=== PATIENT | female | born 1995 | race Caucasian/White ===

== ENCOUNTER 2018-06-19 17:58 | Emergency (ER) | payer BC, OTHER | END 2018-06-19 19:23 | disposition home or self-care (01) | LOC: SCSER 17:58 | DX: O20.9 Hemorrhage in early pregnancy, unspecified (principal); O99.331 Smoking (tobacco) complicating pregnancy, first trimester; F17.200 Nicotine dependence, unspecified, uncomplicated; Z3A.01 Less than 8 weeks gestation of pregnancy | CPT/HCPCS: 99283 ==

== ENCOUNTER 2019-01-26 05:02 | Inpatient (IN) | payer BC ==
[2019-01-26 05:35] VITALS: BMI 25.4
--- NOTE | 2019-01-26 05:48 | PDOC.LDHP ---
Labor and Delivery H&P HPI: Patient of Dr Hopson Location: L&D time: 544 HPI: 24 yo at 38 weeks 2 days with CTX sice 0200. No VB, no LOF. Good FM. Review of systems: completed ROS performed and negative unless specified in HPI Current gestational age (weeks): 38 (1 day) Due date: 02/08/19 Grav: 2 Para: 1 OB History Details: x1 Current complications: none Abnormal US findings: No Current medications: pre-rima vitamins Previous surgical history: none Allergies/Adverse Reactions: Allergies Allergy/AdvReac Type Severity Reaction Status Date / Time No Known Allergies Allergy Verified 01/26/19 05:31 - Physical Exam Vital signs reviewed and normal: yes General: NAD Heart: RRR Lungs: CTAB Abdomen: gravid Extremeties: no edema FHT: category [address] [place] contractions every: evrey 3-5 min - Vaginal Exam cm dilated: 4 Effacement: 75% Station: -2 - Assessment Latent labor at early term; GBS neg - Plan Plan: observation in L&D (Patient was 3 cm last check in office, with slight change now. We will OBS for 2 hours and recheck to see if progress made. Admit if cervical change or needed pain control.)
[2019-01-26] MEDS ORDERED: Fentanyl 4 mcg/Bup 0.1% Cadd 100 ML ONE (06:58)
--- NOTE | 2019-01-26 07:02 | PDOC.EVN ---
Event Note - Event Note Event Note: Cevical recheck by RN: 7cm...direct admission
[2019-01-26] MEDS ORDERED: Butorphanol Tartrate 1 MG/ML VIAL SLOW IVP PRN (07:06)
[2019-01-26] MEDS ORDERED: Promethazine HCl 25 MG/ML VIAL IM/IV PRN (07:06)
[2019-01-26] MEDS ORDERED: Butorphanol Tartrate 1 MG/ML VIAL ONE (07:07)
[2019-01-26] MEDS ORDERED: HYDROcodone/Acetaminophen 5/325 mg Tablet PO PRN ×2 (07:13)
[2019-01-26] MEDS ORDERED: Lidocaine 1% (PF) 30 ML VIAL SC PRN (07:13)
[2019-01-26] MEDS ORDERED: Ibuprofen 800 MG TAB PO PRN (07:13)
[2019-01-26] MEDS ORDERED: NS / Oxytocin 40 units/1000ml 1,000 ML IV PRN (07:13)
[2019-01-26 07:17] LABS: Hemoglobin 12.2 g/dL (12.0-16.0); Mean Corpuscular HGB CONC 33.6 g/dL (32.0-36.0); Mean Corpuscular Hemoglobin 28.8 pg (27.0-31.0); Mean Corpuscular Volume 85.8 fL (78.0-98.0); Mean Platelet Volume 6.9 fL (7.4-10.4); Platelet Count 298 thou/uL (130-400); Red Blood Cell (RBC) Count 4.22 mill/uL (4.20-5.40); White Blood Cell (WBC) Count 8.9 thou/uL (4.8-10.8)
[2019-01-26] MEDS ORDERED: Fentanyl 100 MCG/2 ML VIAL ONE (07:35)
[2019-01-26] MEDS ORDERED: Lidocaine 1.5%/Epinephrine 1:200,000 5 ML AMPUL IJ ONE (07:35)
[2019-01-26] MEDS ORDERED: NS / Oxytocin 40 units/1000ml 1,000 ML ONE ×2 (08:33→13:34)
[2019-01-26] MEDS ORDERED: Lidocaine 1% (PF) 30 ML VIAL ONE (08:33)
[2019-01-26 08:34] LABS: Syphilis Antibody Nonreactive (Nonreactive); Syphilis Antibody Index 0.04 S/CO (<1.00 Non-Reactive)
[2019-01-26 08:35] LABS: HBSAg Index 0.36 S/CO (0-0.99); Hep B Surf Ag Non-Reactive S/CO (NonReactive)
[2019-01-26] MEDS ORDERED: Bupivacaine/Epinephrine 0.25% 30 ML VIAL ONE (09:00)
--- NOTE | 2019-01-26 09:10 | PDOC.OPDEL ---
OB Operative/Delivery Note Delivery Dr/Surgeon: Costa Assist: Minh Pre-Delivery Diagnosis: active labor Procedure/Post Delivery Dx: spontaneous vaginal delivery Anesthesia: epidural - Additional Findings/Plan Placenta delivered: spontaneous Repaired Obstetrical Laceration: none Estimated blood loss: QBL= 48 cc Compilations/Other Findings: of viable female . Apgars 9/9 Post delivery plan: routine recovery
[2019-01-26] MEDS ORDERED: Bisacodyl 10 MG SUPP PR PRN (10:57)
[2019-01-26] MEDS ORDERED: Milk Of Magnesia 30 ML UDCUP PO PRN (10:57)
[2019-01-26] MEDS ORDERED: Methylergonovine 0.2 MG TAB PO PRN (10:57)
[2019-01-26] MEDS ORDERED: Lanolin Ointment 7 GM TUBE TOP PRN (10:57)
[2019-01-26] MEDS ORDERED: Adacel (T-DAP) 0.5 ML SYRINGE IM ONE (10:57)
[2019-01-26] MEDS ORDERED: Preparation H Ointment 28 GM TUBE PR PRN (10:57)
[2019-01-26] MEDS ORDERED: diphenhydrAMINE 25 MG CAP PO PRN (10:57)
[2019-01-26] MEDS ORDERED: Misoprostol 200 MCG TAB VAG PRN (10:57)
[2019-01-26] MEDS ORDERED: Ondansetron PF 4 MG/2 ML Vial IVP PRN (10:57)
[2019-01-26] MEDS ORDERED: Zolpidem Tartrate 5 MG TAB PO PRN (10:57)
[2019-01-26] MEDS ORDERED: Benzocaine-Menthol 82.5 ML CAN TOP PRN (10:57)
[2019-01-26] MEDS ORDERED: Methylergonovine 0.2 MG/ML VIAL IM PRN (10:57)
[2019-01-26] MEDS: Ferrous Sulfate 325 MG TAB PO SCH (18:01)
[2019-01-26] MEDS: Ibuprofen 800 MG TAB PO SCH (22:01)
[2019-01-26] MEDS: Docusate Calcium (SURFAK) 240 MG CAP PO SCH (22:01)
--- NOTE | 2019-01-27 00:28 | PDOC.PP ---
Post Progress Note Post Day #: PPD#1 Subjective: Resting, no complaints. PO intake tolerated: yes Ambulation: yes Vital Signs (12 hours) Temp Pulse Resp BP Pulse Ox 01/26/19 20:05 98.0 F 76 18 109/67 98 01/26/19 13:30 63 18 147/74 H Weight Weight 61.235 kg - Physical Examination General: NAD Respiratory: non-labored breathing Neurological: no gross focal deficits Psychiatric: normal affect Result Diagrams: 01/26/19 07:08 Additional Labs: Post Labs Blood Type A POSITIVE 01/26/19 07:08 Hep Bs Antigen Non-Reactive S/CO (NonReactive) 01/26/19 07:08 - Assessment/Plan Doing well s/p . Routine PP care.
[2019-01-27] MEDS: Ibuprofen 800 MG TAB PO SCH ×2 (06:23→14:16)
[2019-01-27] MEDS: Ferrous Sulfate 325 MG TAB PO SCH ×2 (08:57→16:09)
[2019-01-27] MEDS: Docusate Calcium (SURFAK) 240 MG CAP PO SCH (08:58)
[2019-01-27] MEDS ORDERED: Prenatal Vitamin 1 TAB PO SCH (09:00)
[2019-01-27 10:23] VITALS: BP 97/55; TEMP 98.2
--- NOTE | 2019-01-27 16:42 | PDOC.EVN ---
Event Note - Event Note Event Note: DISCHARGE NOTE OBGYN rn [facility] @9205 I was notified that the patient would like to go home this PM now that baby is clear for DC to home. Vitals reviewed. Rounded on this AM by Dr Skelton who had previously cleared her for DC to home if desired. OK for [facility] Motrin OTC prn Follow up 2-4 weeks DX: S/P Vaginal Delivery Routine care
== END 2019-01-27 17:40 | disposition home or self-care (01) | DRG 807 ==
LOC: L&D/OP 05:02 → L&D 06:59 → 3SW 12:18
PROVIDERS: ADMIT Obstetrics & Gynecology; ATTEND Student in an Organized Health Care Education/Training Program
PROC: 10E0XZZ Delivery of Products of Conception, External Approach (ICD-10-PCS; principal; 2019-01-26)
DX: O80 Encounter for full-term uncomplicated delivery (principal); Z37.0 Single live birth; Z3A.38 38 weeks gestation of pregnancy
CPT/HCPCS: 36415; 51702; 85027; 86780; 86850; 86900; 86901; 87340; 99285; J0595; J2001; J3010; J3490; Q0163